=== PATIENT | female | born 1970 | race African-American/Black ===

== ENCOUNTER → 2018-06-25 | Outpatient (CLI) | payer BC ==
--- NOTE | 2018-06-26 08:11 | KCIC ---
EXAM: Bilateral digital screening mammogram with tomosynthesis. HISTORY: 47-year-old female presents for screening mammography. TECHNIQUE: Full-field digital craniocaudal and mediolateral oblique 2D and 3D tomosynthesis images of both breasts are obtained for evaluation. Computer aided detection with [employer] software version 9.3 was applied. COMPARISON: 08/05/2013 BREAST PARENCHYMAL DENSITY: Level C - Heterogeneously dense. FINDINGS: There is a new cluster of microcalcifications within the 11:30 position of the right breast approximately 13 cm from the nipple. There are areas of nodularity and asymmetry which are stable in appearance, allowing for differences in imaging technique. There is no architectural distortion. IMPRESSION: BI-RADS Category 0: Additional imaging needed. RECOMMENDATION: Further evaluation with spot magnification views of clustered calcifications within the right breast is recommended to assess calcification morphology. If your mammogram demonstrates that you have dense breast tissue, which could hide abnormalities, and if you have other risk factors for breast cancer that have been identified, you might benefit from supplemental screening tests that may be suggested by your ordering physician. Dense breast tissue, in and of itself, is a relatively common condition. This information is not provided to cause undue concern, but rather to raise your awareness and to promote discussion with your physician regarding the presence of other risk factors, in addition to dense breast tissue. A report of your mammography results will be sent to you and your physician. You should contact your physician if you have any questions or concerns regarding this report. Mammography is a sensitive method for finding small breast cancers, but it does not detect them all and is not a substitute for careful clinical examination. A negative mammogram does not negate a clinically suspicious finding and should not result in delay in biopsying a clinically suspicious abnormality. PQRS compliance statement - Patient information was entered into a reminder system with a target due date for the next mammogram. "Our facility is accredited by the [employer] Mammography [employer]." Electronically signed by: Shari Camacho MD (06/26/2018 8:08 AM) [id number]
== END | disposition home or self-care (01) ==
LOC: KCIC MAMMO 16:58
PROVIDERS: ATTEND Physician Assistant Surgical
DX: Z12.31 Encounter for screening mammogram for malignant neoplasm of breast (principal)
CPT/HCPCS: 77063; 77067

== ENCOUNTER → 2018-07-02 | Outpatient (CLI) | payer BC ==
--- NOTE | 2018-07-02 17:09 | KCIC ---
Right breast diagnostic digital mammograms: Reason for examination: Right breast calcifications. Comparison is made to mammographic exam dated 06/25/2018. Cone compression magnification views were obtained of the right breast for further evaluation with calcification seen in the upper outer quadrant. With these additional views, clustered calcifications persists at the 11:00 B position. These have a indeterminate appearance and DCIS cannot be excluded. Further evaluation with stereotactic biopsy is recommended. IMPRESSION: Clustered indeterminate calcifications persist at the 11:00 B position of the right breast. Recommend further evaluation with stereotactic biopsy. BI-RADS Category 4: Suspicious. These findings have been discussed with the patient and the patient has been instructed to follow-up with her clinician and the patient's physician materials assistant, Milly Cedillo, will be notified about these findings. "Our facility is accredited by the [employer] Mammography [employer]." Electronically signed by: Luz Ambrocio MD (07/02/2018 5:06 PM) [id number]
== END | disposition home or self-care (01) ==
LOC: KCIC MAMMO 13:12
PROVIDERS: ATTEND Physician Assistant Surgical
DX: R92.8 Other abnormal and inconclusive findings on diagnostic imaging of breast (principal)
CPT/HCPCS: 77065